=== PATIENT | female | born 1945 | race Caucasian/White ===

== ENCOUNTER 2023-10-04 15:02 | Emergency (ER) | payer MEDICARE, OTHER ==
[~2023-10-04] VITALS: Ht 162.6 cm; Wt 82.1 kg
[2023-10-04] MEDS ORDERED: CEFAZOLIN 1 GM in IV D5W 50 ML IV ONE (16:30)
[2023-10-04 17:42] LABS: BASOPHILS # (AUTO) 0.1 K/uL (0.0-0.2); BASOPHILS % (AUTO) 0.7 % (0.0-2.0); EOSINOPHILS # (AUTO) 0.2 K/uL (0.0-0.7); EOSINOPHILS % (AUTO) 2.1 % (0.0-6.0); HEMATOCRIT 43 % (33-45); HEMOGLOBIN 13.1 g/dL (11.5-14.8); LYMPHOCYTES # (AUTO) 2.2 K/uL (0.8-4.8); LYMPHOCYTES % (AUTO) 30.2 % (20.0-44.0); MEAN CORPUSCULAR HEMOGLOBIN 20 PG (26.0-33.0); MEAN CORPUSCULAR HGB CONC 30 g/dl (31.0-36.0); MEAN CORPUSCULAR VOLUME 67 fL (82-100); MONOCYTES # (AUTO) 0.6 K/uL (0.1-1.30); MONOCYTES % (AUTO) 8.3 % (2.0-12.0); NEUTROPHILS # (AUTO) 4.4 K/uL (1.8-8.9); NEUTROPHILS % (AUTO) 58.7 % (43.0-81.0); PLATELET COUNT (AUTO) 195 K/uL (150-450); RED BLOOD CELL COUNT(AUTO) 6.49 MIL/uL (4.0-5.2); RED CELL DISTRIBUTION WIDTH 20.1 % (11.5-15.0); WHITE BLOOD COUNT (AUTO) 7.4 K/uL (4.3-11.0)
[2023-10-04 17:51] LABS: CALCIUM, SERUM 9.2 mg/dL (8.5-10.1); CARBON DIOXIDE 27 mmol/L (21-32); CHLORIDE 112 mmol/L (98-107); GLUCOSE 84 mg/dL (74-106); POTASSIUM 3.8 mmol/L (3.5-5.1); SODIUM SERUM 147 mmol/L (136-145); UREA NITROGEN, BLOOD 16 mg/dL (7-18)
[2023-10-04 18:06] LABS: C-REACTIVE PROTEIN 0.75 mg/dL (0.0-0.30)
[2023-10-04 18:16] LABS: BAND % (MANUAL) 1 % (0.0-5.0); LYMPHOCYTES % (MANUAL) 34 % (16-48); MONOCYTES % (MANUAL) 6 % (0-11.0); NEUTROPHILS % (MANUAL) 59 (42-76)
[2023-10-04 18:17] LABS: PLATELET ESTIMATE ADEQUATE
[2023-10-04 18:18] LABS: ERYTHROCYTE SEDIMENTATION RATE 44 MM/HR (0-30)
[2023-10-04] MEDS ORDERED: TYL2T PO (19:16)
[2023-10-04] MEDS ORDERED: CEPH500C2 PO (19:16)
[2023-10-04 19:33] VITALS: BP 135/60; TEMP 98.3; O2SAT 98
== END 2023-10-04 19:34 | disposition home or self-care (01) ==
LOC: ER 15:02
DX: L03.116 Cellulitis of left lower limb (principal)
CPT/HCPCS: 99285; 96365; 93971; 73552; 85025; 80048; 85652; 36415; 86140; 85007; J0690; J7060; A4223

== ENCOUNTER 2025-01-22 11:43 | Emergency (ER) | payer MEDICARE, OTHER ==
[~2025-01-22] VITALS: Ht 162.6 cm; Wt 81.2 kg
[~2025-01-22 11:43] MED LIST: CEPH500C2 PO; TYL2T PO
[2025-01-22 11:50] VITALS: BP 143/65; TEMP 98.1
[2025-01-22] MEDS ORDERED: CEPHALEXIN MONOHYDRATE 500 MG CAPSULE PO ONE (12:06)
[2025-01-22] MEDS: CEPHALEXIN MONOHYDRATE 500 MG CAPSULE PO ONE (12:08)
[2025-01-22] MEDS ORDERED: CEPH500C2 PO (12:26)
[2025-01-22 12:30] VITALS: O2SAT 99
== END 2025-01-22 12:31 | disposition home or self-care (01) ==
LOC: ER 11:45
DX: L03.115 Cellulitis of right lower limb (principal); R21 Rash and other nonspecific skin eruption; E78.00 Pure hypercholesterolemia, unspecified; I10 Essential (primary) hypertension